=== PATIENT | female | born 1960 | race Native Hawaiian/Other Pacific Islander ===

== ENCOUNTER 2019-01-13 05:38 | Outpatient (CLI) | payer OTHER | END 2019-01-13 05:39 | disposition home or self-care (01) | LOC: C.LAB 05:38 | DX: E78.00 Pure hypercholesterolemia, unspecified (principal); I10 Essential (primary) hypertension; I69.998 Other sequelae following unspecified cerebrovascular disease ==

== ENCOUNTER 2019-01-30 08:19 | Outpatient (CLI) | payer OTHER | END 2019-01-30 08:20 | disposition home or self-care (01) | LOC: C.MAMMO 08:19 | DX: Z12.31 Encounter for screening mammogram for malignant neoplasm of breast (principal) ==